=== PATIENT | male | born 1990 | race African-American/Black ===

== ENCOUNTER 2018-09-18 14:36 | Emergency (ER) | payer SELFPAY ==
[2018-09-19] MEDS ORDERED: METO25TA4 PO (19:27)
[2018-09-19 19:28] VITALS: BP 144/78
== END 2018-09-19 ==
LOC: ER 14:36 → EDBD 14:36 → ER 14:53
DX: R44.2 Other hallucinations (principal); Z53.21 Procedure and treatment not carried out due to patient leaving prior to being seen by health care provider

== ENCOUNTER 2018-09-19 17:48 | Emergency (ER) | payer SELFPAY ==
[~2018-09-19] VITALS: Ht 162.6 cm; Wt 68.0 kg
[2018-09-19] MEDS ORDERED: METO25TA4 PO (19:27)
--- NOTE | 2018-09-19 19:27 | PHYS DOC ---
Past Medical History Past Medical History: Hypertension Past Surgical History: No Surgical History Alcohol Use: None Drug Use: None Adult General Chief Complaint Chief Complaint: HYPERTENSION HPI HPI Patient is a 28 year old female with history of hypertension who presents today complaining of running out of his blood pressure medicine metoprolol one week ago. Patient denies any chest pain or shortness of breath. He is also asking if i can give him prescription for hydrocodone for his chronic shoulder pain as well as codeine with promethazine. Informed patient I will not give him any prescription for codeine with promethazine nor hydrocodone. I do not see any indication for this. He can follow-up with his doctor. Offered him prescription for metoprolol for BP. He started yelling out loud asking how long it will take for discharge paperwork to be printed. RN informed him he has to avoid yelling. Review of Systems Review of Systems Constitutional: Denies fever or chills [] Eyes: Denies change in visual acuity, redness, or eye pain [] HENT: Denies nasal congestion or sore throat [] Respiratory: Denies cough or shortness of breath [] Cardiovascular: No additional information not addressed in HPI. Request BP medicine refill. GI: Denies abdominal pain, nausea, vomiting, bloody stools or diarrhea [] : Denies dysuria or hematuria [] Musculoskeletal: Denies back pain or joint pain [] Integument: Denies rash or skin lesions [] Neurologic: Denies headache, focal weakness or sensory changes [] All other systems were reviewed and found to be within normal limits, except as documented in this note. Current Medications Current Medications Current Medications Medications (Trade) Dose Ordered Sig/John Start Time Stop Time Status Last Admin Dose Admin Metoprolol Tartrate (Lopressor) 25 mg 1X ONCE 09/19/18 19:45 09/19/18 19:45 DC 09/19/18 19:28 25 MG Allergies Allergies Allergies Coded Allergies Type Severity Reaction Last Updated Verified No Known Drug Allergies 09/19/18 No Physical Exam Physical Exam Constitutional: Well developed, well nourished, no acute distress, non-toxic appearance. [] HENT: Normocephalic, atraumatic, bilateral external ears normal, oropharynx moist, no oral exudates, nose normal. [] Eyes: PERRLA, EOMI, conjunctiva normal, no discharge. [] Neck: Normal range of motion, no tenderness, supple, no stridor. [] Cardiovascular:Heart rate regular rhythm, no murmur [] Lungs & Thorax: Bilateral breath sounds clear to auscultation [] Abdomen: Bowel sounds normal, soft, no tenderness, no masses, no pulsatile masses. [] Skin: Warm, dry, no erythema, no rash. [] Back: No tenderness, no CVA tenderness. [] Extremities: No tenderness, no cyanosis, no clubbing, ROM intact, no edema. [] Neurologic: Alert and oriented X 3, normal motor function, normal sensory function, no focal deficits noted. [] Psychologic: Affect normal, judgement normal, mood normal. [] Current Patient Data Vital Signs Vital Signs Date Time Temp Pulse Resp B/P (MAP) Pulse Ox O2 Delivery O2 Flow Rate FiO2 09/19/18 19:28 69 144/78 09/19/18 18:33 98.1 18 99 Room Air 98.1 EKG EKG [] Radiology/Procedures Radiology/Procedures [] Course & Med Decision Making Course & Med Decision Making Pertinent Labs and Imaging studies reviewed. (See chart for details) See HPI Dragon Disclaimer Dragon Disclaimer This electronic medical record was generated, in whole or in part, using a voice recognition dictation system. Departure Departure Impression: Primary Impression: Hypertension Additional Impression: Medication refill Disposition: HOME, SELF-CARE Condition: STABLE Referrals: PAULINO ADAMS MD (PCP) follow up in 1 week Patient Instructions: Hypertension Additional Instructions: We gave you your blood pressure medication prescription. Contact your primary care doctor and follow-up as soon as possible. Scripts Metoprolol Tartrate (METOPROLOL TARTRATE) 25 Mg Tablet 1 TAB PO DAILY, #30 TAB 0 Refills Prov: FLACAELEANORDARRON APRN 09/19/18 Problem Qualifiers Primary Impression: Hypertension Hypertension type: unspecified Qualified Codes: I10 - Essential (primary) hypertension DARRON KAYE CHEPE Sep 19, 2018 19:27
[2018-09-19 19:28] VITALS: BP 144/78
[2018-09-19] MEDS ORDERED: METOPROLOL TART IMMED RELEASE 25 MG TABLET. PO ONE (19:45)
== END 2018-09-19 19:32 | disposition home or self-care (01) ==
LOC: ER 17:48
DX: I10 Essential (primary) hypertension (principal); Z76.0 Encounter for issue of repeat prescription
CPT/HCPCS: 99283

== ENCOUNTER 2019-10-17 02:26 | Emergency (ER) | payer SELFPAY ==
[~2019-10-17] VITALS: Ht 172.7 cm; Wt 68.0 kg
[~2019-10-17 02:26] MED LIST: METO25TA4 PO
--- NOTE | 2019-10-17 02:38 | PHYS DOC ---
Past Medical History Past Medical History: Hypertension Past Surgical History: No Surgical History Alcohol Use: None Drug Use: None Adult General Chief Complaint Chief Complaint: CHEST PAIN HPI HPI 29-year-old male with underlying history of hypertension presents to the emergency Department complaints of chest pain which started approximately 45 minutes prior to arrival. He states he was eating Ramen noodles. He developed shortness of breath, sharp pain. No radiation of the pain. Denies any nausea, vomiting, diaphoresis. Nothing makes his pain worse, nothing makes his pain better. Patient states she's been to the ER approximately 4 times for complaints of chest pain. Patient looks as if he has a PCP - Dr. Armenta Review of Systems Review of Systems Constitutional: Denies fever or chills [] Eyes: Denies change in visual acuity, redness, or eye pain [] Respiratory: + shortness of breath [] Cardiovascular: No additional information not addressed in HPI [] GI: Denies abdominal pain, nausea, vomiting, bloody stools or diarrhea [] Musculoskeletal: Denies back pain or joint pain [] Integument: Denies rash or skin lesions [] Neurologic: Denies headache, focal weakness or sensory changes [] All other systems were reviewed and found to be within normal limits, except as documented in this note. Current Medications Current Medications Current Medications Medications (Trade) Dose Ordered Sig/[facility] Start Time Stop Time Status Last Admin Dose Admin Aspirin (Children'S Aspirin) 324 mg 1X ONCE 10/17/19 03:00 10/17/19 03:01 DC 10/17/19 02:51 324 MG Nitroglycerin (Nitrostat) 0.4 mg PRN Q5MIN PRN 10/17/19 02:45 10/18/19 02:44 10/17/19 02:51 0.4 MG Potassium Chloride (Klor-Con) 40 meq 1X ONCE 10/17/19 04:00 10/17/19 04:01 Allergies Allergies Allergies Coded Allergies Type Severity Reaction Last Updated Verified No Known Drug Allergies 09/19/18 No Physical Exam Physical Exam Constitutional: Well developed, well nourished, no acute distress, non-toxic appearance. [] HENT: Normocephalic, atraumatic, bilateral external ears normal, oropharynx moist, nose normal. [] Eyes: PERRLA, EOMI, conjunctiva normal, no discharge. [] Cardiovascular:Heart rate regular rhythm, no murmur [] Lungs & Thorax: Bilateral breath sounds clear to auscultation [] Abdomen: Bowel sounds normal, soft, no tenderness, no masses, no pulsatile masses. [] Skin: Warm, dry, no erythema, no rash. [] Back: No tenderness, no CVA tenderness. [] Extremities: No tenderness, no edema. [] Neurologic: Alert and oriented X 3, no focal deficits noted. [] Psychologic: Affect normal, judgement normal, mood normal. [] Current Patient Data Vital Signs Vital Signs Date Time Temp Pulse Resp B/P (MAP) Pulse Ox O2 Delivery O2 Flow Rate FiO2 10/17/19 02:51 80 122/73 10/17/19 02:33 98.2 16 97 Room Air 98.2 Lab Values Laboratory Tests Test 10/17/19 02:40 White Blood Count 6.3 x10^3/uL (4.0-11.0) Red Blood Count 4.83 x10^6/uL (4.30-5.70) Hemoglobin 15.5 g/dL (13.0-17.5) Hematocrit 44.5 % (39.0-53.0) Mean Corpuscular Volume 92 fL (79-100) Mean Corpuscular Hemoglobin 32 pg (25-35) Mean Corpuscular Hemoglobin Concent 35 g/dL (31-37) Red Cell Distribution Width 13.6 % (11.5-14.5) Platelet Count 290 x10^3/uL (140-400) Neutrophils (%) (Auto) 56 % (31-73) Lymphocytes (%) (Auto) 32 % (24-48) Monocytes (%) (Auto) 9 % (0-9) Eosinophils (%) (Auto) 2 % (0-3) Basophils (%) (Auto) 1 % (0-3) Neutrophils # (Auto) 3.5 x10^3/uL (1.8-7.7) Lymphocytes # (Auto) 2.0 x10^3/uL (1.0-4.8) Monocytes # (Auto) 0.6 x10^3/uL (0.0-1.1) Eosinophils # (Auto) 0.1 x10^3/uL (0.0-0.7) Basophils # (Auto) 0.1 x10^3/uL (0.0-0.2) D-Dimer (Lilia) 0.35 ug/mlFEU (0.00-0.50) Sodium Level 138 mmol/L (136-145) Potassium Level 3.3 mmol/L (3.5-5.1) L Chloride Level 103 mmol/L (98-107) Carbon Dioxide Level 28 mmol/L (21-32) Anion Gap 7 (6-14) Blood Urea Nitrogen 10 mg/dL (8-26) Creatinine 1.1 mg/dL (0.7-1.3) Estimated GFR (Cockcroft-Gault) 95.8 BUN/Creatinine Ratio 9 (6-20) Glucose Level 105 mg/dL (70-99) H Calcium Level 8.9 mg/dL (8.5-10.1) Magnesium Level 1.9 mg/dL (1.8-2.4) Total Bilirubin 0.6 mg/dL (0.2-1.0) Aspartate Amino Transferase (AST) 15 U/L (15-37) Alanine Aminotransferase (ALT) 18 U/L (16-63) Alkaline Phosphatase 67 U/L (46-116) Troponin I Quantitative < 0.017 ng/mL (0.000-0.055) Total Protein 6.9 g/dL (6.4-8.2) Albumin 3.6 g/dL (3.4-5.0) Albumin/Globulin Ratio 1.1 (1.0-1.7) Laboratory Tests 10/17/19 02:40 Laboratory Tests 10/17/19 02:40 EKG EKG EKG reviewed, no STEMI, NSR, Normal [place] appreciated, interpretation time 0227[] Radiology/Procedures Radiology/Procedures Chest xray without evidence of acute process Identified[] Course & Med Decision Making Course & Med Decision Making Pertinent Labs and Imaging studies reviewed. (See chart for details) [] 29-year-old male with underlying history of hypertension presents to the emergency Department complaints of chest pain which started approximately 45 minutes prior to arrival. He states he was eating Ramen noodles. He developed shortness of breath, sharp pain. No radiation of the pain. Denies any nausea, vomiting, diaphoresis. Nothing makes his pain worse, nothing makes his pain better. Patient states she's been to the ER approximately 4 times for complaints of chest pain. Patient looks as if he has a PCP - Dr. Armenta Discussed with patient lab results/imaging EKG reviewed Trop negative, Ddimer negative Recommend follow up with PCP as outpatient Jeevan Disclaimer Dragon Disclaimer This electronic medical record was generated, in whole or in part, using a voice recognition dictation system. The HEART Score for CP Pts HEART Score for Chest Pain: HEART Score for Chest Pain Response (Comments) Value History Slighlty/Non-Suspicious 0 ECG Normal 0 Age < 45 0 Risk Factors 1 or 2 Risk Factors 1 Troponin < Normal Limit 0 Total 1 Risk Factors: Risk Factors: DM, Current or recent (<one month) smoker, HTN, HLP, family history of CAD, obesity. Risk Scores: Score 0 - 3: 2.5% MACE over next 6 weeks - Discharge Home Score 4 - 6: 20.3% MACE over next 6 weeks - Admit for Clinical Observation Score 7 - 10: 72.7% MACE over next 6 weeks - Early Invasive Strategies Departure Departure Impression: Primary Impression: Chest pain Additional Impression: Hypertension Disposition: 01 HOME, SELF-CARE Condition: IMPROVED Referrals: PAULINO ARMENTA MD (PCP) Patient Instructions: Chest Pain (Nonspecific), [id number] Additional Instructions: Recommend follow up with PCP 3 - 5 days Return to the ER with worsening symptoms, intractable pain, fever, altered mental status Tylenol/Motrin as needed for pain EKG reviewed in ER without acute findings Troponin (heart enzyme) negative Ddimer (clot number) negative Chest Xray without evidence of acute findings for pneumonia Problem Qualifiers Primary Impression: Chest pain Chest pain type: unspecified Qualified Codes: R07.9 - Chest pain, unspecified Additional Impression: Hypertension Hypertension type: essential hypertension Qualified Codes: I10 - Essential (primary) hypertension DARIN CORNEJO MD Oct 17, 2019 02:38
[2019-10-17] MEDS ORDERED: NITROGLYCERIN SUBLINGUAL 0.4 MG BOTTLE OF 25. SL PRN (02:45)
[2019-10-17 02:48] LABS: BASO # 0.1 x10^3/uL (0.0-0.2); BASO % 1 % (0-3); EOS # 0.1 x10^3/uL (0.0-0.7); EOS % 2 % (0-3); HEMATOCRIT 44.5 % (39.0-53.0); HEMOGLOBIN 15.5 g/dL (13.0-17.5); LYMPH % 32 % (24-48); MEAN CORPUSCULAR HEMOGLOBIN 32 pg (25-35); MEAN CORPUSCULAR HGB CONC 35 g/dL (31-37); MEAN CORPUSCULAR VOLUME 92 fL (79-100); MONO # 0.6 x10^3/uL (0.0-1.1); MONO % 9 % (0-9); NEUT # 3.5 x10^3/uL (1.8-7.7); NEUT % 56 % (31-73); PLATELET COUNT 290 x10^3/uL (140-400); RED BLOOD COUNT 4.83 x10^6/uL (4.30-5.70); RED CELL DISTRIBUTION WIDTH 13.6 % (11.5-14.5); WHITE BLOOD COUNT 6.3 x10^3/uL (4.0-11.0)
[2019-10-17 02:59] LABS: CALCIUM 8.9 mg/dL (8.5-10.1); CREATININE 1.1 mg/dL (0.7-1.3); GFR 95.8; POTASSIUM 3.3 mmol/L (3.5-5.1)
[2019-10-17] MEDS ORDERED: ASPIRIN CHEWABLE 81 MG TABLET. PO ONE (03:00)
[2019-10-17 03:05] LABS: ALBUMIN 3.6 g/dL (3.4-5.0); ALBUMIN/GLOBULIN RATIO 1.1 (1.0-1.7); MAGNESIUM 1.9 mg/dL (1.8-2.4); TOTAL BILIRUBIN 0.6 mg/dL (0.2-1.0); TOTAL PROTEIN 6.9 g/dL (6.4-8.2)
--- NOTE | 2019-10-17 03:18 | RAD ---
AP chest x-ray HISTORY: Chest pain. FINDINGS: Heart size upper limits of normal. Mediastinal silhouette is normal. No pneumothorax, pulmonary opacities or pleural effusions. Slight thoracic scoliosis. IMPRESSION: No acute process. Electronically signed by: Bryan Quiñonez MD (10/17/2019 3:15 AM) [facility]
[2019-10-17 04:00] VITALS: BP 120/70
[2019-10-17] MEDS ORDERED: POTASSIUM CHLORIDE 20 MEQ TABLET.ER. PO ONE (04:00)
--- NOTE | 2019-10-17 15:00 | EKG ---
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
== END 2019-10-17 04:08 | disposition home or self-care (01) ==
LOC: ER 02:26
DX: I10 Essential (primary) hypertension (principal); R07.89 Other chest pain; R06.02 Shortness of breath; Z79.82 Long term (current) use of aspirin
CPT/HCPCS: 36415; 71045; 80053; 83735; 84484; 85025; 85379; 93005; 99285